=== PATIENT | female | born 1975 | race Caucasian/White ===

== ENCOUNTER 2018-01-14 16:57 | Emergency (ER) | payer OTHER ==
[~2018-01-14] VITALS: Ht 152.4 cm; Wt 82.0 kg
[2018-01-14] MEDS ORDERED: METHYLPREDNISOLONE SOD SUCC 125 MG/2 ML VIAL IV ONE (18:00)
[2018-01-14] MEDS ORDERED: DIPHENHYDRAMINE 50MG/ML VIAL IV ONE (18:00)
[2018-01-14] MEDS ORDERED: FAMOTIDINE 20MG/2ML VIAL IV ONE (18:00)
[2018-01-14 19:44] VITALS: BP 150/86
== END 2018-01-14 20:45 | disposition home or self-care (01) ==
LOC: ER 17:16
DX: L27.2 Dermatitis due to ingested food (principal); Z91.018 Allergy to other foods
CPT/HCPCS: 96374; 96375; 99284; J1200; J2930; J3490